=== PATIENT | female | born 1985 | race Two or more races ===

== ENCOUNTER 2016-05-31 16:13 | Inpatient (IN) | payer OTHER ==
[~2016-05-31] VITALS: Ht 157.5 cm; Wt 42.6 kg
[2016-05-31] MEDS ORDERED: KETOROLAC TROMETHAMINE INJ 30 MG/ML VIAL ONE (16:36)
[2016-05-31] MEDS ORDERED: HYDROMORPHONE 1 MG/1 ML DISP.SYRIN ONE (16:36)
[2016-05-31] MEDS ORDERED: IV NS 0.9% 1,000 ML ONE ×2 (16:37→18:19)
[2016-05-31] MEDS ORDERED: ONDANSETRON HCL/PF 4 MG/2 ML VIAL ONE ×2 (16:37→22:20)
[2016-05-31 16:46] LABS: BASOPHILS # (AUTO) 0.3 /CMM (0.0-0.2); BASOPHILS % (AUTO) 2.4 % (0.0-2.0); DIFF TOTAL % 100 %; EOSINOPHILS # (AUTO) 0.1 /CMM (0.0-0.7); EOSINOPHILS % (AUTO) 0.5 % (0.0-6.0); HEMATOCRIT 49 % (33-45); HEMOGLOBIN 16.9 g/dL (11.5-14.8); LYMPHOCYTES # (AUTO) 1.8 /CMM (0.8-4.8); LYMPHOCYTES % (AUTO) 12.7 % (20.0-44.0); MEAN CORPUSCULAR HEMOGLOBIN 33 PG (26.0-33.0); MEAN CORPUSCULAR HGB CONC 34 g/dl (31.0-36.0); MEAN CORPUSCULAR VOLUME 96 fL (82-100); MONOCYTES # (AUTO) 0.9 /CMM (0.1-1.30); MONOCYTES % (AUTO) 6.1 % (2.0-12.0); NEUTROPHILS # (AUTO) 10.9 /CMM (1.8-8.9); NEUTROPHILS % (AUTO) 78.3 % (43.0-81.0); PLATELET COUNT (AUTO) 278 /CMM (150-450); RED BLOOD CELL COUNT(AUTO) 5.12 MIL/uL (4.0-5.2)
[2016-05-31 16:54] LABS: CALCIUM, SERUM 10.2 mg/dL (8.5-10.1); CREATININE 1.6 mg/dL (0.6-1.3); POTASSIUM 3.8 mmol/L (3.5-5.1)
[2016-05-31] MEDS ORDERED: IV NS 0.9% 1,000 ML BAG IV ONE ×2 (17:00)
[2016-05-31] MEDS ORDERED: ONDANSETRON HCL/PF 4 MG/2 ML VIAL IVP ONE (17:00)
[2016-05-31] MEDS ORDERED: KETOROLAC TROMETHAMINE INJ 30 MG/ML VIAL IV ONE (17:00)
[2016-05-31] MEDS ORDERED: HYDROMORPHONE INJ 2 MG/ML DISP.SYRIN IV ONE (17:00)
[2016-05-31 18:37] LABS: KETONES,URINE Negative (NEGATIVE); LEUKOCYTE ESTERASE ,URINE Negative (NEGATIVE); PH,URINE 5.5 (5.0-8.0)
[2016-05-31 18:38] LABS: ADD UA MICROSCOPIC YES; PREGNANCY TEST URINE QUAL NEGATIVE (NEGATIVE)
[2016-05-31 19:10] LABS: ADD URINE CULTURE NO; WBC,URINE 0-2 /HPF (0-3)
[2016-05-31] MEDS ORDERED: ONDANSETRON HCL/PF 4 MG/2 ML VIAL IVP PRN (21:30)
[2016-05-31] MEDS ORDERED: ZOLPIDEM TARTRATE 5 MG TABLET PO PRN (21:30)
[2016-05-31] MEDS ORDERED: ACETAMINOPHEN 325 MG TABLET PO PRN (21:30)
[2016-05-31] MEDS ORDERED: Z GUARD REMEDY 2 OZ OINT TP PRN (21:30)
[2016-05-31] MEDS ORDERED: HYDROCODONE/APAP 5/325MG 1 EACH TABLET PO PRN (21:30)
[2016-05-31] MEDS ORDERED: MAGNESIUM HYDROXIDE 30 ML UDC PO PRN (21:30)
[2016-05-31] MEDS ORDERED: MORPHINE SULFATE INJ 2 MG/ML DISP.SYRIN ONE (22:19)
[2016-05-31] MEDS ORDERED: ZOLPIDEM TARTRATE 5 MG TABLET ONE (22:20)
[2016-05-31] MEDS: MORPHINE SULFATE INJ 2 MG/ML DISP.SYRIN IV PRN (22:25)
[2016-06-01] MEDS ORDERED: IV NS 0.9% 1,000 ML ONE (02:13)
[2016-06-01] MEDS ORDERED: IV SET PRIMARY PUMP SET 1 EA INFUS.SET MC ONE (02:13)
[2016-06-01] MEDS: IV NS 0.9% 1,000 ML IV PRN ×3 (02:18→21:40)
[2016-06-01] MEDS ORDERED: MORPHINE SULFATE INJ 2 MG/ML DISP.SYRIN ONE (06:39)
[2016-06-01 06:42] LABS: BASOPHILS % (AUTO) 0.2 % (0.0-2.0); DIFF TOTAL % 100 %; EOSINOPHILS # (AUTO) 0.1 /CMM (0.0-0.7); EOSINOPHILS % (AUTO) 0.9 % (0.0-6.0); HEMATOCRIT 37 % (33-45); HEMOGLOBIN 12.3 g/dL (11.5-14.8); LYMPHOCYTES # (AUTO) 2.1 /CMM (0.8-4.8); LYMPHOCYTES % (AUTO) 28.7 % (20.0-44.0); MEAN CORPUSCULAR HEMOGLOBIN 33 PG (26.0-33.0); MEAN CORPUSCULAR HGB CONC 34 g/dl (31.0-36.0); MEAN CORPUSCULAR VOLUME 97 fL (82-100); MONOCYTES # (AUTO) 0.7 /CMM (0.1-1.30); MONOCYTES % (AUTO) 8.9 % (2.0-12.0); NEUTROPHILS # (AUTO) 4.6 /CMM (1.8-8.9); NEUTROPHILS % (AUTO) 61.3 % (43.0-81.0); PLATELET COUNT (AUTO) 206 /CMM (150-450); RED BLOOD CELL COUNT(AUTO) 3.77 MIL/uL (4.0-5.2); WHITE BLOOD COUNT (AUTO) 7.4 K/uL (4.3-11.0)
[2016-06-01 06:55] LABS: BILIRUBIN,TOTAL 0.4 mg/dL (0.2-1.0); CREATININE 0.8 mg/dL (0.6-1.3); PHOSPHORUS 3.6 mg/dL (2.5-4.9); POTASSIUM 3.5 mmol/L (3.5-5.1); TOTAL PROTEIN, SERUM 5.8 g/dL (6.4-8.2)
[2016-06-01] MEDS ORDERED: HYDROMORPHONE 1 MG/1 ML DISP.SYRIN IV ONE (07:00)
[2016-06-01] MEDS: MORPHINE SULFATE INJ 2 MG/ML DISP.SYRIN IV PRN ×3 (07:06→20:17)
[2016-06-01 08:00] VITALS: BP 128/81
[2016-06-01] MEDS: PANTOPRAZOLE 40 MG VIAL IV SCH (09:14)
[2016-06-01] MEDS: MAG HYDROX/AL HYDROX/SIMETH 30 ML UDC PO PRN (12:57)
[2016-06-01 16:00] VITALS: BP 135/68
[2016-06-01 20:00] VITALS: BP 126/82
[2016-06-02] MEDS: MORPHINE SULFATE INJ 2 MG/ML DISP.SYRIN IV PRN (04:05)
[2016-06-02] MEDS: MAG HYDROX/AL HYDROX/SIMETH 30 ML UDC PO PRN (04:29)
[2016-06-02] MEDS: IV NS 0.9% 1,000 ML IV PRN (05:55)
[2016-06-02 08:00] VITALS: BP 132/74
[2016-06-02 09:34] VITALS: BP 132/74
[2016-06-02] MEDS: PANTOPRAZOLE 40 MG VIAL IV SCH (09:34)
[2016-06-02 15:41] VITALS: BP 122/71
== END 2016-06-02 16:00 | disposition home or self-care (01) | DRG 460 ==
LOC: ER 16:16 → MEDSG2 21:07
PROVIDERS: ADMIT Family Medicine; ATTEND Family Medicine
DX: N17.0 Acute kidney failure with tubular necrosis (principal); E87.1 Hypo-osmolality and hyponatremia; R10.2 Pelvic and perineal pain; E86.0 Dehydration; Z90.49 Acquired absence of other specified parts of digestive tract; D72.829 Elevated white blood cell count, unspecified; R63.0 Anorexia; F29 Unspecified psychosis not due to a substance or known physiological condition; F43.20 Adjustment disorder, unspecified
CPT/HCPCS: 36415; 76770-TC; 76856-TC; 80048-TC; 80053-TC; 81000-TC; 83735-TC; 84100-TC; 84703-TC; 85025-TC; 87081-TC; 87491; 87591; A4606; C9113; J1170; J1885; J2270; J2405; J7030; Z7610

== ENCOUNTER 2016-09-30 08:33 | Emergency (ER) | payer OTHER ==
[~2016-09-30] VITALS: Ht 157.5 cm; Wt 49.9 kg
--- NOTE | 2016-09-30 08:35 | NUR ---
AAOx3, came to ER c/o diffuse abdominal pain, constipation last BM was this AM, denies nausea and vomiting. Skin is warm and dry. Resp is even and unlabored with NAD noted. Awaiting MD for eval.
--- NOTE | 2016-09-30 08:45 | NUR ---
Dr Gabriel at for eval.
--- NOTE | 2016-09-30 08:45 | NUR ---
RAC #20 IV ACCESS. BLOOD SAMPLE COLLECTED SENT TO LAB
--- NOTE | 2016-09-30 08:50 | NUR ---
URINE SAMPLE COLLECTED SENT TO LAB
[2016-09-30] MEDS ORDERED: IV SET PRIMARY PUMP SET 1 EA INFUS.SET MC ONE (08:51)
[2016-09-30] MEDS ORDERED: IV NS 0.9% 1,000 ML ONE (08:51)
[2016-09-30] MEDS ORDERED: ONDANSETRON HCL/PF 4 MG/2 ML VIAL ONE (08:51)
[2016-09-30] MEDS ORDERED: HYDROMORPHONE 1 MG/1 ML DISP.SYRIN ONE (08:51)
[2016-09-30] MEDS ORDERED: HYDROMORPHONE INJ 2 MG/ML DISP.SYRIN IV ONE (09:00)
[2016-09-30] MEDS ORDERED: IV NS 0.9% 1,000 ML BAG IV ONE (09:00)
[2016-09-30] MEDS ORDERED: ONDANSETRON HCL/PF 4 MG/2 ML VIAL IVP ONE (09:00)
[2016-09-30 09:19] LABS: BASOPHILS % (AUTO) 0.2 % (0.0-2.0); EOSINOPHILS % (AUTO) 0.4 % (0.0-6.0); HEMATOCRIT 45 % (33-45); HEMOGLOBIN 15.1 g/dL (11.5-14.8); LYMPHOCYTES # (AUTO) 1.4 /CMM (0.8-4.8); LYMPHOCYTES % (AUTO) 19.8 % (20.0-44.0); MEAN CORPUSCULAR HEMOGLOBIN 32 PG (26.0-33.0); MEAN CORPUSCULAR HGB CONC 34 g/dl (31.0-36.0); MEAN CORPUSCULAR VOLUME 95 fL (82-100); MONOCYTES # (AUTO) 0.5 /CMM (0.1-1.30); MONOCYTES % (AUTO) 6.6 % (2.0-12.0); NEUTROPHILS # (AUTO) 5.2 /CMM (1.8-8.9); PLATELET COUNT (AUTO) 279 /CMM (150-450); RDW COEFFICIENT OF VARIATION 14.1 (11.5-15.0); RED BLOOD CELL COUNT(AUTO) 4.76 MIL/uL (4.0-5.2); WHITE BLOOD COUNT (AUTO) 7.2 K/uL (4.3-11.0)
[2016-09-30 09:25] LABS: APPEARANCE,URINE CLEAR (CLEAR); BILIRUBIN,URINE 1+ (NEGATIVE); BLOOD, URINE TRACE Ery/uL (NEGATIVE); COLOR,URINE YELLOW (YELLOW); KETONES,URINE 2+ (NEGATIVE); LEUKOCYTE ESTERASE ,URINE NEGATIVE (NEGATIVE); NITRITE, URINE NEGATIVE (NEGATIVE); PROTEIN,URINE 1+ mg/dl (NEGATIVE); UGLUCOSE NEGATIVE (NEGATIVE); UROBILINOGEN,URINE 0.2 EU/dL (0.2)
[2016-09-30 09:28] LABS: CALCIUM, SERUM 9.1 mg/dL (8.5-10.1); CREATININE 1.1 mg/dL (0.6-1.3); POTASSIUM 4.3 mmol/L (3.5-5.1)
[2016-09-30 09:30] LABS: PREGNANCY TEST URINE QUAL NEGATIVE (NEGATIVE)
[2016-09-30 09:34] LABS: ALBUMIN 4.4 g/dL (3.4-5.0); BILIRUBIN,DIRECT 0.1 mg/dL (0.0-0.2); BILIRUBIN,TOTAL 0.5 mg/dL (0.2-1.0); TOTAL PROTEIN, SERUM 8.2 g/dL (6.4-8.2)
--- NOTE | 2016-09-30 09:35 | NUR ---
IV removed. Catheter intact and site benign. Pressure and 4x4 applied to site. No bleeding noted.
[2016-09-30 09:36] LABS: RBC,URINE 0-2 /HPF (0-2); WBC,URINE 0-2 /HPF (0-3)
--- NOTE | 2016-09-30 09:36 | NUR ---
Patient discharged to home in stable condition. Written and verbal after care instructions given. Patient verbalizes understanding of instruction.
[2016-09-30 09:37] VITALS: BP 138/84
[2016-09-30 09:37] LABS: ADD URINE CULTURE NO; BACTERIA,URINE Rare /HPF (None Seen); MUCUS,URINE Many /LPF (None Seen); SQUAMOUS EPITHELIAL CELL,UR Many /HPF (None Seen)
== END 2016-09-30 09:38 | disposition home or self-care (01) ==
LOC: ER 08:34
DX: R10.84 Generalized abdominal pain (principal); K21.9 Gastro-esophageal reflux disease without esophagitis; Z90.49 Acquired absence of other specified parts of digestive tract
CPT/HCPCS: 36415; 80048; 80076; 81001; 83690; 84703; 85025; 96361; 96374; 96375; 99284; A4606; J1170; J2405; J7030; Z7610; 81000-TC

== ENCOUNTER 2016-10-06 09:47 | Emergency (ER) | payer OTHER ==
[~2016-10-06] VITALS: Ht 157.5 cm; Wt 45.4 kg
--- NOTE | 2016-10-06 10:08 | NUR ---
PT TO ED ROOM 08. CHEST PAIN, ABDOMINAL PAIN, NAUSEA, VOMITING, SKIN BURN WITH HOT WATER IN SHOWER - ALL SINCE 050 AM. A/A/O. AMBULATORY W/O ASSISTANCE AND STEADY GAIT. CHANGED TO GOWN. CONNECTED TO MONITOR. SIDE RAILS UP. HOB ELEVATED. AWAITING EVALUATION BY ER PROVIDER.
--- NOTE | 2016-10-06 10:11 | NUR ---
AT BEDSIDE FOR EVAL.
[2016-10-06] MEDS ORDERED: IV NS 0.9% 1,000 ML ONE (10:16)
[2016-10-06] MEDS ORDERED: MORPHINE SULFATE INJ 2 MG/ML DISP.SYRIN ONE (10:16)
[2016-10-06] MEDS ORDERED: PANTOPRAZOLE 40 MG VIAL ONE (10:16)
[2016-10-06] MEDS ORDERED: IV SET PRIMARY PUMP SET 1 EA INFUS.SET MC ONE (10:16)
--- NOTE | 2016-10-06 10:25 | NUR ---
IV ACCESSED TO [facility] 20. BLOOD SAMPLE SENT TO LAB
--- NOTE | 2016-10-06 10:27 | NUR ---
MEDICATED PT ORDERED
--- NOTE | 2016-10-06 10:28 | NUR ---
RN CLINICAL QUALITY AT FOR EKG
[2016-10-06] MEDS ORDERED: IV NS 0.9% 1,000 ML BAG IV ONE ×2 (10:30→13:00)
[2016-10-06] MEDS ORDERED: PANTOPRAZOLE 40 MG VIAL IV ONE (10:30)
[2016-10-06] MEDS ORDERED: MORPHINE SULFATE INJ 2 MG/ML DISP.SYRIN IV ONE (10:30)
[2016-10-06 10:35] LABS: BASOPHILS # (AUTO) 0.3 /CMM (0.0-0.2); BASOPHILS % (AUTO) 3.6 % (0.0-2.0); EOSINOPHILS % (AUTO) 0.2 % (0.0-6.0); HEMATOCRIT 47 % (33-45); HEMOGLOBIN 16.2 g/dL (11.5-14.8); LYMPHOCYTES # (AUTO) 1.3 /CMM (0.8-4.8); LYMPHOCYTES % (AUTO) 13.7 % (20.0-44.0); MEAN CORPUSCULAR HEMOGLOBIN 33 PG (26.0-33.0); MEAN CORPUSCULAR HGB CONC 35 g/dl (31.0-36.0); MEAN CORPUSCULAR VOLUME 95 fL (82-100); MONOCYTES # (AUTO) 0.6 /CMM (0.1-1.30); MONOCYTES % (AUTO) 6.2 % (2.0-12.0); NEUTROPHILS # (AUTO) 7.1 /CMM (1.8-8.9); NEUTROPHILS % (AUTO) 76.3 % (43.0-81.0); PLATELET COUNT (AUTO) 276 /CMM (150-450); RDW COEFFICIENT OF VARIATION 13.7 (11.5-15.0); RED BLOOD CELL COUNT(AUTO) 4.94 MIL/uL (4.0-5.2); WHITE BLOOD COUNT (AUTO) 9.3 K/uL (4.3-11.0)
--- NOTE | 2016-10-06 10:36 | NUR ---
URINE SAMPLE COLLECTED SENT TO LAB
--- NOTE | 2016-10-06 10:40 | NUR ---
OBSTETRICS TECH AT BEDSIDE
[2016-10-06 10:43] LABS: CALCIUM, SERUM 9.5 mg/dL (8.5-10.1); CREATININE 1.1 mg/dL (0.6-1.3); POTASSIUM 3.9 mmol/L (3.5-5.1)
[2016-10-06 10:44] LABS: APPEARANCE,URINE Slightly Cloudy (CLEAR); BLOOD, URINE Trace-intact Ery/uL (NEGATIVE); COLOR,URINE Dark (YELLOW); KETONES,URINE 40 (NEGATIVE); LEUKOCYTE ESTERASE ,URINE Negative (NEGATIVE); NITRITE, URINE Negative (NEGATIVE); PROTEIN,URINE >=300 mg/dl (NEGATIVE); UGLUCOSE Negative (NEGATIVE)
[2016-10-06 10:45] LABS: BILIRUBIN,URINE SMALL (NEGATIVE)
[2016-10-06 10:46] LABS: INR 1.04 (0.87-1.13); PROTHROMBIN TIME 10.8 SECS (9.5-12.7)
[2016-10-06 10:49] LABS: ALBUMIN 4.8 g/dL (3.4-5.0); BILIRUBIN,DIRECT 0.1 mg/dL (0.0-0.2); BILIRUBIN,TOTAL 0.6 mg/dL (0.2-1.0); TOTAL PROTEIN, SERUM 8.8 g/dL (6.4-8.2)
[2016-10-06 10:50] LABS: RBC,URINE 0-2 /HPF (0-2)
[2016-10-06 10:51] LABS: BACTERIA,URINE None seen /HPF (None Seen); MUCUS,URINE Few /LPF (None Seen); SQUAMOUS EPITHELIAL CELL,UR Many /HPF (None Seen)
[2016-10-06 10:52] LABS: PREGNANCY TEST URINE QUAL NEGATIVE (NEGATIVE)
[2016-10-06] MEDS ORDERED: METOCLOPRAMIDE HCL 10 MG/2 ML VIAL ONE (11:03)
[2016-10-06] MEDS ORDERED: LORAZEPAM INJ 2 MG/ML VIAL ONE ×2 (11:03→11:14)
--- NOTE | 2016-10-06 11:06 | NUR ---
patient appears anxious. Ativan given as ordered
--- NOTE | 2016-10-06 11:19 | NUR ---
PEDAL SPASM AND CARPAL SPASM NOTED; MD NOTIFIED WITH ORDERS FOR ADDITIONAL ATIVAN -TO BE GIVEN (0.5 IVP) - GIVEN SEE EMAR
[2016-10-06] MEDS ORDERED: METOCLOPRAMIDE HCL 10 MG/2 ML VIAL IV ONE (11:30)
[2016-10-06] MEDS ORDERED: LORAZEPAM INJ 2 MG/ML VIAL IV ONE ×2 (11:30)
[2016-10-06] MEDS ORDERED: IV NS 0.9% 500 ML IV ONE (12:29)
[2016-10-06 12:48] VITALS: BP 114/65
--- NOTE | 2016-10-06 13:01 | NUR ---
IV removed. Catheter intact and site benign. Pressure and 4x4 applied to site. No bleeding noted.
--- NOTE | 2016-10-06 13:01 | NUR ---
Patient discharged to home in stable condition. Written and verbal after care instructions given. Patient verbalizes understanding of instruction.
[2016-10-09] MEDS ORDERED: SUCR1ORA6 PO (10:55)
[2016-10-09] MEDS ORDERED: NORT25CA PO (10:55)
[2016-10-09] MEDS ORDERED: PANT40VI IV (10:55)
== END 2016-10-06 13:02 | disposition home or self-care (01) ==
LOC: ER 09:50
DX: R07.9 Chest pain, unspecified (principal); R10.13 Epigastric pain; R11.2 Nausea with vomiting, unspecified; N17.9 Acute kidney failure, unspecified; K21.9 Gastro-esophageal reflux disease without esophagitis; Z90.49 Acquired absence of other specified parts of digestive tract
CPT/HCPCS: 36415; 71010-TC; 80048-TC; 80076-TC; 81000-TC; 82550-TC; 83690-TC; 84703-TC; 85025-TC; 85730-TC; 86850-TC; A4606; C9113; J2060; J2270; J2765; J7030; J7040; Z7610

== ENCOUNTER 2016-10-08 06:46 | Inpatient (IN) | payer OTHER ==
[~2016-10-08] VITALS: Ht 162.6 cm; Wt 44.5 kg
--- NOTE | 2016-10-08 06:50 | NUR ---
31 YO FEMALE BB SELF. PT IS ALERT X 3, C/O EPIGASTRIC PAIN SINCE SHE WOKE UP.PT AMBULATED TO ER BED, SKIN WARM AND DRY, RR EVEN AND UNLABORED. PT PLACED ON LAWN TECHNICIAN. PT SEEMS VERY NERVOUS. AWAITING ORDERS FROM PROVIDER, WILL CONTINUE TO MONITOR
[2016-10-08] MEDS ORDERED: IV NS 0.9% 1,000 ML ONE (06:53)
[2016-10-08] MEDS ORDERED: METOCLOPRAMIDE HCL 10 MG/2 ML VIAL ONE (06:53)
[2016-10-08] MEDS ORDERED: IV SET PRIMARY 1 EA INFUS.SET MC ONE (06:53)
[2016-10-08] MEDS ORDERED: LORAZEPAM INJ 2 MG/ML VIAL ONE (06:54)
--- NOTE | 2016-10-08 06:55 | NUR ---
XANDER PRATT DO AT BED SIDE FOR EVAL
[2016-10-08] MEDS ORDERED: METOCLOPRAMIDE HCL 10 MG/2 ML VIAL IV ONE (07:00)
[2016-10-08] MEDS ORDERED: IV NS 0.9% 1,000 ML BAG IV ONE (07:00)
[2016-10-08] MEDS ORDERED: DICYCLOMINE HCL INJ 20 MG/2 ML AMPUL IM ONE ×2 (07:00→07:04)
[2016-10-08] MEDS ORDERED: LORAZEPAM INJ 2 MG/ML VIAL IV ONE (07:00)
--- NOTE | 2016-10-08 07:01 | NUR ---
MEDICATED PT ORDERED
--- NOTE | 2016-10-08 07:08 | NUR ---
[facility] CALLED FOR TRANSPORT, ETA [phone]
[2016-10-08 07:21] LABS: BASOPHILS % (AUTO) 0.3 % (0.0-2.0); EOSINOPHILS # (AUTO) 0.1 /CMM (0.0-0.7); EOSINOPHILS % (AUTO) 0.5 % (0.0-6.0); HEMATOCRIT 43 % (33-45); HEMOGLOBIN 14.4 g/dL (11.5-14.8); LYMPHOCYTES # (AUTO) 4.1 /CMM (0.8-4.8); LYMPHOCYTES % (AUTO) 28.5 % (20.0-44.0); MEAN CORPUSCULAR HEMOGLOBIN 32 PG (26.0-33.0); MEAN CORPUSCULAR HGB CONC 33 g/dl (31.0-36.0); MEAN CORPUSCULAR VOLUME 96 fL (82-100); MONOCYTES # (AUTO) 0.9 /CMM (0.1-1.30); MONOCYTES % (AUTO) 6.6 % (2.0-12.0); NEUTROPHILS # (AUTO) 9.2 /CMM (1.8-8.9); NEUTROPHILS % (AUTO) 64.1 % (43.0-81.0); PLATELET COUNT (AUTO) 282 /CMM (150-450); RDW COEFFICIENT OF VARIATION 14.5 (11.5-15.0); RED BLOOD CELL COUNT(AUTO) 4.51 MIL/uL (4.0-5.2); WHITE BLOOD COUNT (AUTO) 14.3 K/uL (4.3-11.0)
[2016-10-08 07:27] LABS: CALCIUM, SERUM 9.1 mg/dL (8.5-10.1); CREATININE 1.2 mg/dL (0.6-1.3); POTASSIUM 4.5 mmol/L (3.5-5.1)
[2016-10-08 07:33] LABS: ALBUMIN 4.3 g/dL (3.4-5.0); BILIRUBIN,DIRECT 0.1 mg/dL (0.0-0.2); BILIRUBIN,TOTAL 0.4 mg/dL (0.2-1.0)
--- NOTE | 2016-10-08 07:36 | NUR ---
URINE SAMPLE SENT TO LAB
[2016-10-08 08:06] LABS: APPEARANCE,URINE SL CLOUDY (CLEAR); BILIRUBIN,URINE NEGATIVE (NEGATIVE); BLOOD, URINE NEGATIVE Ery/uL (NEGATIVE); COLOR,URINE YELLOW (YELLOW); KETONES,URINE NEGATIVE (NEGATIVE); LEUKOCYTE ESTERASE ,URINE NEGATIVE (NEGATIVE); NITRITE, URINE NEGATIVE (NEGATIVE); PH,URINE 6.5 (5.0-8.0); PROTEIN,URINE 1+ mg/dl (NEGATIVE); UGLUCOSE NEGATIVE (NEGATIVE); UROBILINOGEN,URINE 0.2 EU/dL (0.2)
[2016-10-08 08:16] LABS: BACTERIA,URINE Few /HPF (None Seen); RBC,URINE 0-2 /HPF (0-2); SQUAMOUS EPITHELIAL CELL,UR Many /HPF (None Seen); WBC,URINE 0-2 /HPF (0-3)
[2016-10-08 08:17] LABS: HYALINE CASTS, URINE Few /LPF (None Seen); MUCUS,URINE Rare /LPF (None Seen)
--- NOTE | 2016-10-08 08:24 | NUR ---
PATIENT WAS TRANSPORTED TO [place] FOR CT
--- NOTE | 2016-10-08 09:18 | NUR ---
PATIENT IS BACK FROM CT AT [facility], PATIENT REMAINS IN STABLE CONDITION AT THIS TIME.
[2016-10-08] MEDS ORDERED: MAG HYDROX/AL HYDROX/SIMETH 30 ML UDC PO ONE (09:30)
[2016-10-08] MEDS ORDERED: LIDOCAINE VISCOUS 2% UD 15 ML UDC MM ONE (09:30)
--- NOTE | 2016-10-08 09:35 | NUR ---
panel front worker paged
--- NOTE | 2016-10-08 09:40 | NUR ---
JANE REYES CALLED.
--- NOTE | 2016-10-08 10:06 | NUR ---
PAGED JANE REYES, WAITING FOR RETURN CALL.
[2016-10-08] MEDS ORDERED: MORPHINE SULFATE INJ 4 MG/ML DISP.SYRIN ONE (10:13)
--- NOTE | 2016-10-08 10:15 | NUR ---
MD PRATT ON PHONE WITH JANE REYES
[2016-10-08] MEDS ORDERED: MIRT15TA7 PO (10:24)
[2016-10-08] MEDS ORDERED: OMEP40CA37 PO (10:24)
[2016-10-08] MEDS ORDERED: LACT1CAP69 PO (10:24)
[2016-10-08] MEDS ORDERED: MORPHINE SULFATE INJ 2 MG/ML DISP.SYRIN IV ONE (10:30)
--- NOTE | 2016-10-08 10:31 | NUR ---
REPORT GIVEN TO KEEGAN NGUYEN
--- NOTE | 2016-10-08 10:36 | NUR ---
PT TRANSPORTED TO , [facility]
--- NOTE | 2016-10-08 10:40 | NUR ---
MS EXCHANGE CLERK NOTE PATIENT ADMITTED FROM EMERGENCY ROOM VIA WHEELCHAIR. RECEIVED REPORT FROM YUNG CARCAMO. NO SOB OR DISTRESS NOTED. IV ON LEFT HAND 18G INTACT AND PATENT, NO REDNESS OR SWELLING NOTED. ALL BELONGINGS WITH PATIENT AT BEDSIDE. PATIENT STATED " I DONT WANT ANYONE GOING THROUGH MY STUFF, JUST LEAVE IT IN THE BAG". PATIENT ABLE TO COMMUNICATE NEEDS. SAFETY MEASURES IMPLEMENTED. CALL LIGHT WITHIN REACH. PATIENT DOES HAVE SKIN ISSUES PRESENT, BUT DENIED ME TO TAKE PICTURES OF SKIN FOR DOCUMENTATION, EXPLAINED THE REASON BEHIND DOCUMENTATION PATIENT STILL REFUSED. PAIN STATES 5/10 ABDOMINAL AND BACK PAIN. NOTIFIED JANE REYES NP. WILL CONTINUE TO MONITOR
--- NOTE | 2016-10-08 10:47 | NUR ---
MS RN NOTE PATIENT IS REFUSING FLEET ENEMA. EXPLAINED THE RISKS AND BENEFITS. PATIENT STATED "I DONT WANT IT". 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
--- NOTE | 2016-10-08 11:15 | NUR ---
MS RN NOTE PATIENT BEGAN TO YELL AND SCREAM INSIDE HER ROOM. WHEN CHECKING ON PATIENT, SHE STATED THAT SHE WAS IN A LOT OF PAIN. I OFFERED PATIENT HOT PACKS FOR HER ABDOMEN AND BACK. PATIENT ACCEPTED AND STATED "THE HOT PACKS ARE WORKING". PATIENT THEN LAID IN BED AND FELL ASLEEP. WILL CONTINUE TO MONITOR
[2016-10-08] MEDS ORDERED: HALOPERIDOL LACTATE INJ 5 MG/ML VIAL IM ONE ×2 (11:30→12:00)
[2016-10-08] MEDS ORDERED: ACETAMINOPHEN 325 MG TABLET PO PRN (11:30)
[2016-10-08] MEDS ORDERED: Z GUARD REMEDY 2 OZ OINT TP PRN (11:30)
[2016-10-08 12:00] VITALS: BP 136/75
[2016-10-08] MEDS: PANTOPRAZOLE 40 MG VIAL IV SCH ×2 (12:00→21:04)
[2016-10-08] MEDS ORDERED: diphenhydrAMINE HCL 50 MG/ML VIAL IM ONE (12:00)
[2016-10-08] MEDS ORDERED: NA PHOS,M-B/NA PHOS,DI-BA 1 EA ENEMA RC PRN (12:00)
[2016-10-08] MEDS: SUCRALFATE 1 G/10 ML UDC PO SCH ×3 (12:00→21:53)
[2016-10-08] MEDS ORDERED: BISACODYL SUPP (10 MG) 10 MG/SUPP.RECT SUPP.RECT RC PRN (12:00)
--- NOTE | 2016-10-08 12:00 | NUR ---
MS RN NOTE PATIENT STARTED TO SCREAM AND YELL AGAIN. I EXPLAINED TO PATIENT THAT SHE CAN NOT BE SCREAMING AND TALKED TO PATIENT FOR ABOUT 30 MINUTES TO FIGURE OUT WHAT SHE NEEDED AT THAT TIME AT THE BEDSIDE TO HELP HER COPE WITH PAIN. PATIENT STATED "SHE NEEDED A DISTRACTION". PROVIDED PSYCHOSOCIAL SUPPORT, DEEP BREATHING EXERCISES, ENCOURAGED TO TALK ABOUT OTHER HOBBIES SHE LIKES. PATIENT BECAME RELAXED AND KEPT DOING THE BREATHING EXERCISES.
[2016-10-08] MEDS ORDERED: IV SET PRIMARY PUMP SET 1 EA INFUS.SET MC ONE (12:11)
[2016-10-08] MEDS: IV NS 0.9% 1,000 ML IV PRN (12:19)
--- NOTE | 2016-10-08 12:55 | NUR ---
MS RN NOTE PATIENT STARTED TO SCREAM OUT THE HALLWAY FOR HELP. I ASKED PATIENT TO WALK TO HER BED WITH ASSISTANCE. SPENT TIME WITH PATIENT TO HELP HER WITH PAIN DISTRACTION. PATIENT STATED "I FEEL OKAY NOW, THE DEEP BREATHING IS HELPING". WILL CONTINUE TO MONITOR
[2016-10-08] MEDS: LORAZEPAM INJ 2 MG/ML VIAL IV PRN ×2 (13:27→19:43)
[2016-10-08 16:00] VITALS: BP 125/63
[2016-10-08] MEDS: MORPHINE SULFATE INJ 2 MG/ML DISP.SYRIN IV PRN ×2 (18:28→22:25)
--- NOTE | 2016-10-08 18:30 | NUR ---
MS RN NOTE WHEN ENTERING PATIENT'S ROOM FOR PAIN MEDICATION. PATIENT LAID DOWN. BEGAN TO FLUSH IV AND PATIENT STATED "I FEEL IT WORKING NOW", PATIENT GOT INSTANT RELIEF OF PAIN WHEN FLUSHING IV LINE BEFORE PAIN MEDICATION WAS GIVEN. WILL REASSESS PATIENT ON PAIN MANAGEMENT
--- NOTE | 2016-10-08 18:43 | NUR ---
MS RN CLOSING NOTE PATIENT IS ALERT AND ORIENTED x4. PATIENT STATES PAIN 9/10 IN ABDOMEN AND BACK AREA. MORPHINE 1 MG IV GIVEN. PATIENT STILL STATES PAIN. ENCOURAGED DEEP BREATHING EXERCISES AND CONTINUOUS THERAPEUTIC GUIDED IMAGING. PATIENT REFUSED TO HAVE PICTURES TAKEN OF SKIN ISSUES MADE CHARGE AWARE. PATIENT CONTINUING TO REFUSE BELONGINGS BAG CHECKED FOR BELONGINGS ITEM LIST, REPORTED BY ER NURSE PATIENT MAY HAVE POSSIBLE METH INSIDE BAG. IV INTACT AND PATENT, IV FLUIDS RUNNING AT 75 ML/HR. PATIENT CONTINUES TO YELL AND SCREAM FOR NURSES AND DIRECTOR WORK TO COME INTO ROOM, WHEN GIVEN NURSING CARE PATIENT CONTINUES TO YELL AND SCREAM AFTER ATTENDING TO NEEDS.ABLE TO COMMUNICATE NEEDS. CALL LIGHT WITHIN REACH AT ALL TIMES. SAFETY MEASURES IMPLEMENTED. WILL ENDORSE TO JOY OPERATOR NURSE
--- NOTE | 2016-10-08 19:25 | NUR ---
MS RN NOTE RECEIVED PATIENT FROM DAY SHIFT, PATIENT IS ALERT AND ORIENTEDX3, NO S/S OF RESPIRATORY DISTRESS AND COMPLAINS OF INTRACTABLE ABDOMINAL PAIN, KEEPS MOANING AND SCREAMING FOR HER PAIN. IV ON LEFT HAND IS INTACT, PATENT, COVERED WITH KERLIX. SRX2, BED IN LOW POSITION, CALL LIGHT WITHIN REACH, WILL CONTINUE TO MONITOR PATIENT.
--- NOTE | 2016-10-08 19:45 | NUR ---
MS RN NOTE PATIENT IS BEING AGITATED AND ANXIOUS, KEEPS MOANING FOR PAIN. ATIVAN 1MG IVP GIVEN. WILL MONITOR EFFECTIVENESS.
[2016-10-08 20:00] VITALS: BP 139/78
--- NOTE | 2016-10-08 20:20 | NUR ---
MS RN NOTE PATIENT KEEPS COMPLAINING PAIN ON HER ABDOMEN ASKING FOR MORPHINE WHICH IS NOT DUE YET. DISTRACTION AND DEEP BREATHING TECHNIQUE PERFORMED WITH PATIENT. HOT PACK PROVIDED WELL.
--- NOTE | 2016-10-08 21:00 | NUR ---
MS RN NOTE PATIENT'S BAG WAS CHECKED BY FIELD SERVICE COORDINATOR, NO MEDICATIONS PRESENT.
[2016-10-08] MEDS: ONDANSETRON HCL/PF 4 MG/2 ML VIAL IV PRN (22:10)
--- NOTE | 2016-10-08 22:30 | NUR ---
MS RN NOTE PATIENT COMPLAINS OF ABDOMINAL PAIN 10/10, MORPHINE 2MG IVP GIVEN. WILL MONITOR FOR EFFECTIVENESS.
[2016-10-09] MEDS: IV NS 0.9% 1,000 ML IV PRN (05:46)
--- NOTE | 2016-10-09 06:30 | NUR ---
MS [place] NOTE PATIENT STARTED TO COMPLAIN ABDOMINAL PAIN, MORPHINE 2MG IVP GIVEN. WILL MONITOR FOR EFFECTIVENESS. Addendum: 10/09/16 at 0641 by DEANNE VILLAVICENCIO RN HOT PACK ALSO PROVIDED FOR PAIN MANAGEMENT.
[2016-10-09] MEDS: MORPHINE SULFATE INJ 2 MG/ML DISP.SYRIN IV PRN ×2 (06:31→10:07)
[2016-10-09] MEDS: SUCRALFATE 1 G/10 ML UDC PO SCH (06:50)
[2016-10-09 06:55] LABS: BASOPHILS % (AUTO) 0.3 % (0.0-2.0); EOSINOPHILS % (AUTO) 0.4 % (0.0-6.0); HEMATOCRIT 35 % (33-45); HEMOGLOBIN 11.7 g/dL (11.5-14.8); LYMPHOCYTES # (AUTO) 2.3 /CMM (0.8-4.8); LYMPHOCYTES % (AUTO) 20.6 % (20.0-44.0); MEAN CORPUSCULAR HEMOGLOBIN 32 PG (26.0-33.0); MEAN CORPUSCULAR HGB CONC 33 g/dl (31.0-36.0); MEAN CORPUSCULAR VOLUME 97 fL (82-100); MONOCYTES # (AUTO) 0.7 /CMM (0.1-1.30); MONOCYTES % (AUTO) 6.7 % (2.0-12.0); NEUTROPHILS # (AUTO) 7.9 /CMM (1.8-8.9); PLATELET COUNT (AUTO) 202 /CMM (150-450); RDW COEFFICIENT OF VARIATION 14.4 (11.5-15.0); RED BLOOD CELL COUNT(AUTO) 3.65 MIL/uL (4.0-5.2)
[2016-10-09 07:45] LABS: ALBUMIN 3.2 g/dL (3.4-5.0); BILIRUBIN,TOTAL 0.4 mg/dL (0.2-1.0); CALCIUM, SERUM 8.3 mg/dL (8.5-10.1); CREATININE 0.8 mg/dL (0.6-1.3); MAGNESIUM 1.9 mg/dL (1.8-2.4); PHOSPHORUS 3.7 mg/dL (2.5-4.9); TOTAL PROTEIN, SERUM 6.1 g/dL (6.4-8.2)
--- NOTE | 2016-10-09 07:45 | NUR ---
RN MS NOTES PATIENT IN BED A/OX4, IN NO APPARENT DISTRESS, NO SOB NOTED. PATIENT STATES HAVING PAIN IN ABDOMEN, MEDICATED BY PREVIOUS NURSE. ALL NEEDS MET, CALL LIGHT WITHIN REACH.
[2016-10-09 07:46] LABS: THYROID STIMULATING HORMONE 1.268 uIU/mL (0.358-3.74)
[2016-10-09 08:00] VITALS: BP 114/78
[2016-10-09] MEDS: ONDANSETRON HCL/PF 4 MG/2 ML VIAL IV PRN (08:47)
[2016-10-09] MEDS: PANTOPRAZOLE 40 MG VIAL IV SCH (08:47)
[2016-10-09] MEDS: LORAZEPAM INJ 2 MG/ML VIAL IV PRN (08:47)
[2016-10-09] MEDS ORDERED: NORT25CA PO (10:55)
[2016-10-09] MEDS ORDERED: SUCR1ORA6 PO (10:55)
[2016-10-09] MEDS ORDERED: PANT40VI IV (10:55)
--- NOTE | 2016-10-09 12:04 | NUR ---
RN MS NOTES PT IN BED, AWAKE, ALERT AND ORIENTED, PAIN MEDICATION GIVEN FOR PAIN MANAGEMENT ORDERED, VERBALIZED RELIEF AFTER 15 MINUTES OF ADMINISTRATION, PT SEEN BY PHYSICAL THERAPIST, ABLE TO WALK WITH STEADY GAIT WITH PT, TOLERATED WELL, PT SEEN BY DR. REYES, DISCHARGE ORDER GIVEN, ADVISED PT TO SEE HER PRIMARY CARE PHYSICIAN AND TO SEE A PSYCHOLOGIST, VERBALIZED UNDERSTANDING WITH DOCTOR'S ORDERS, DISCHARGE AND MEDICATION INSTRUCTIONS PROVIDED TO PT, VERBALIZED UNDERSTANDING, PRESCRIPTION GIVEN TO PT, BELONGINGS ACCOUNTED FOR, FLEET ENEMA GIVEN TO PT, VERBALIZED RELIEF AFTER ADMINISTRATION, PT ABLE TO MOVE HER BOWELS AFTER 5 MINUTES OF ADMININSTRATION, NO COMPLAINT OF ANY PAIN OR DISCOMFORT AT THIS TIME, PT STATED THAT HER BOYFRIEND KNOWS THAT SHE WILL BE DISCHARGED FROM THE HOSPITAL AND WILL BE AT HOME WHEN SHE GETS THERE, TRANSPORTATION ARRANGED, ACCOMPANIED PT TO [facility], ABLE TO WALK WITH STEADY GAIT TO [facility], PICKED UP BY [facility], LEFT IN STABLE CONDITION.
== END 2016-10-09 12:00 | disposition home or self-care (01) | DRG 241 ==
LOC: ER 06:48 → MED 10:31
PROVIDERS: ADMIT Nurse Practitioner Acute Care; ATTEND Nurse Practitioner Acute Care
DX: K29.70 Gastritis, unspecified, without bleeding (principal); D72.829 Elevated white blood cell count, unspecified; K58.1 Irritable bowel syndrome with constipation; K21.9 Gastro-esophageal reflux disease without esophagitis; R11.10 Vomiting, unspecified; Z90.49 Acquired absence of other specified parts of digestive tract; F12.10 Cannabis abuse, uncomplicated; F43.10 Post-traumatic stress disorder, unspecified; X58.XXXA Exposure to other specified factors, initial encounter; Y92.89 Other specified places as the place of occurrence of the external cause; F44.9 Dissociative and conversion disorder, unspecified
CPT/HCPCS: 36415; 80048-TC; 80053-TC; 80061-TC; 80076-TC; 80305; 81000-TC; 82550-TC; 83690-TC; 83735-TC; 84100-TC; 84443-TC; 84484-TC; 84703-TC; 85025-TC; 87081-TC; 97001-TC; A4606; C9113; J0500; J1200; J1630; J2060; J2270; J2405; J2765; J7030; Z7610

== ENCOUNTER 2016-12-31 04:41 | Emergency (ER) | payer SELFPAY ==
[~2016-12-31] VITALS: Ht 160 cm; Wt 44.0 kg
[~2016-12-31 04:41] MED LIST: LACT1CAP69 PO; NORT25CA PO; PANT40VI IV; SUCR1ORA6 PO
[2016-12-31 04:45] VITALS: BP 161/100
--- NOTE | 2016-12-31 04:45 | NUR ---
31 yo female bb self. pt is alert x 3, c/o left lower abd pain. pt ambulated to er bed. skin warm and dry, rr even and unlabored. pt gowned, placed on directional bore operator. awaiting orders from provider, will contnue to monitor
[2016-12-31] MEDS ORDERED: diphenhydrAMINE HCL 50 MG/ML VIAL ONE (04:54)
[2016-12-31] MEDS ORDERED: HALOPERIDOL LACTATE INJ 5 MG/ML VIAL ONE (04:54)
[2016-12-31] MEDS ORDERED: FAMOTIDINE/PF INJ 20 MG/2 ML VIAL IV ONE ×2 (04:54→05:00)
[2016-12-31] MEDS ORDERED: IV NS 0.9% 1,000 ML BAG IV ONE (05:00)
[2016-12-31] MEDS ORDERED: HALOPERIDOL LACTATE INJ 5 MG/ML VIAL IV ONE (05:00)
[2016-12-31] MEDS ORDERED: diphenhydrAMINE HCL 50 MG/ML VIAL IV ONE (05:00)
--- NOTE | 2016-12-31 05:04 | NUR ---
20g left hand iv started, blood sample obtained and sent to lab. medicated pt as ordered
[2016-12-31 05:09] LABS: BASOPHILS # (AUTO) 0.1 /CMM (0.0-0.2); BASOPHILS % (AUTO) 0.4 % (0.0-2.0); EOSINOPHILS % (AUTO) 0.3 % (0.0-6.0); HEMATOCRIT 43 % (33-45); HEMOGLOBIN 14.4 g/dL (11.5-14.8); LYMPHOCYTES # (AUTO) 2.9 /CMM (0.8-4.8); LYMPHOCYTES % (AUTO) 23.8 % (20.0-44.0); MEAN CORPUSCULAR HEMOGLOBIN 32 PG (26.0-33.0); MEAN CORPUSCULAR HGB CONC 34 g/dl (31.0-36.0); MEAN CORPUSCULAR VOLUME 96 fL (82-100); MONOCYTES # (AUTO) 0.8 /CMM (0.1-1.30); MONOCYTES % (AUTO) 6.6 % (2.0-12.0); NEUTROPHILS # (AUTO) 8.5 /CMM (1.8-8.9); NEUTROPHILS % (AUTO) 68.9 % (43.0-81.0); PLATELET COUNT (AUTO) 235 /CMM (150-450); RDW COEFFICIENT OF VARIATION 14.5 (11.5-15.0); RED BLOOD CELL COUNT(AUTO) 4.49 MIL/uL (4.0-5.2); WHITE BLOOD COUNT (AUTO) 12.3 K/uL (4.3-11.0)
--- NOTE | 2016-12-31 05:24 | NUR ---
Patient does not wish to proceed with medical care recommended by Dr. fritz. Patient given information related to possible complications, up to and including , which could occur as a result of leaving the hospital at this time. Patient verbalizes understanding of risks involved due to leaving against medical advice. Patient has signed AMA form.VITAL SIGNS WITHIN NORMAL LIMITS. pt ambulatory with a steady gait VITAL SIGNS WITHIN NORMAL LIMITS.
[2016-12-31 05:29] LABS: ALBUMIN 4.5 g/dL (3.4-5.0); BILIRUBIN,DIRECT 0.1 mg/dL (0.0-0.2); BILIRUBIN,TOTAL 0.4 mg/dL (0.2-1.0); CALCIUM, SERUM 8.9 mg/dL (8.5-10.1); POTASSIUM 4.1 mmol/L (3.5-5.1); TOTAL PROTEIN, SERUM 8.2 g/dL (6.4-8.2)
== END 2016-12-31 05:26 | disposition left against medical advice (07) ==
LOC: ER 04:42
DX: R10.9 Unspecified abdominal pain (principal); R11.2 Nausea with vomiting, unspecified; Z90.49 Acquired absence of other specified parts of digestive tract
CPT/HCPCS: 36415; 80048; 80076; 83690; 84703; 85025; 96361; 96374; 96375; 99284; A4606; J1200; J1630; J3490; J7030 ×2; Z7610

== ENCOUNTER 2021-08-04 11:52 | Emergency (ER) | payer OTHER ==
[~2021-08-04] VITALS: Ht 157.5 cm; Wt 59.0 kg
--- NOTE | 2021-08-04 12:06 | NUR ---
DR REDD AT BEDSIDE FOR EVAL
--- NOTE | 2021-08-04 12:07 | NUR ---
[id number] HOME, IN CUSTODY FOR MEDICAL CLEARANCE. WAS WIELDING A CROWBAR DENIES SI/HI. STS WAS FIXING HER DOOR. 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
--- NOTE | 2021-08-04 12:11 | NUR ---
Patient discharged to home in stable condition. Written and verbal after care instructions given. Patient verbalizes understanding of instruction.
[2021-08-04 12:14] VITALS: BP 148/78
== END 2021-08-04 12:14 ==
LOC: ER 11:53
DX: Z02.89 Encounter for other administrative examinations (principal); F41.9 Anxiety disorder, unspecified; F32.A Depression, unspecified; Z90.49 Acquired absence of other specified parts of digestive tract; Z79.899 Other long term (current) drug therapy